=== PATIENT | female | born 1985 | race Caucasian/White ===

== ENCOUNTER 2022-10-21 07:44 | Emergency (ER) | payer OTHER, BC ==
[2022-10-21 08:53] LABS: Pregnancy Test - Urine (BHCG) Negative (Negative); Pregu Control Background? CLEAR/WHITE (CLR/WHITE); Pregu Control Bar Appear? YES (CONTROL BAR)
[2022-10-21] MEDS ORDERED: Acetaminophen 500 MG TAB ONE (09:09)
== END 2022-10-21 10:03 | disposition home or self-care (01) ==
LOC: CSHERS 07:44
DX: S09.90XA Unspecified injury of head, initial encounter (principal); M54.50 Low back pain, unspecified; W01.198A Fall on same level from slipping, tripping and stumbling with subsequent striking against other object, initial encounter
CPT/HCPCS: 70450; 72125; 72131; 81025

== ENCOUNTER 2023-12-02 13:41 | Outpatient (CLI) | payer BC | END 2023-12-02 13:42 | disposition home or self-care (01) | LOC: CSHMAMMO 13:41 | PROVIDERS: ATTEND Advanced Practice Midwife | DX: N64.4 Mastodynia (principal) ==